=== PATIENT | male | born 1960 | race Caucasian/White ===

== ENCOUNTER 2019-12-28 08:34 | Emergency (ER) | payer SELFPAY ==
[~2019-12-28] VITALS: Ht 162.6 cm; Wt 64.4 kg
[2019-12-28 08:38] VITALS: BP_SYST 145
--- NOTE | 2019-12-28 08:45 | NUR ---
Patient to ER bed 02 to gown for evaluation. Side rails up.
--- NOTE | 2019-12-28 08:47 | NUR ---
Patient brought in by ambulance in the ED c/o abdominal pain, nausea and vomiting that started today after taking speed. Denied any chest pain or shortness of breath. Denied any fevers or chills. Patient is alert and oriented x2, respirations even and unlabored. VSS, pain level 4/10. Informed of the approximate wait time. Instructed to notify ED staff for any changes in condition or worsening of symptoms while waiting to be seen by an ED provider. Patient verbalized understanding.
--- NOTE | 2019-12-28 08:51 | NUR ---
ER Dr. Balderas at bedside examining patient.
[2019-12-28] MEDS ORDERED: ONDANSETRON HCL 4 MG/2 ML VIAL IVP ONE (09:00)
[2019-12-28] MEDS ORDERED: LORazepam 2 MG/ML VIAL IVP ONE (09:00)
[2019-12-28] MEDS ORDERED: NACL 0.9% 1,000 ML IV ONE ×2 (09:00)
--- NOTE | 2019-12-28 09:00 | NUR ---
# 18 gauge angiocath placed to RAC. Use of asceptic technique. Opsite placed over site. Blood return noted. Blood for lab drawn from site. Flushed with 10 cc of normal saline. No evidence of infiltration noted. Patient tolerated well.
--- NOTE | 2019-12-28 09:01 | NUR ---
Administered Ativan and Zofran IVP as ordered by Dr. Balderas. Patient tolerated the medications well. See eMAR for details.
[2019-12-28 09:14] LABS: BASOPHILS % (AUTO) 0.3 % (0.0-2.0); HEMATOCRIT 49.6 % (36-54); HEMOGLOBIN 16.4 g/dL (14.0-18.0); LYMPHOCYTES # (AUTO) 0.8 K/uL (1.0-5.5); LYMPHOCYTES % (AUTO) 6.3 % (20.5-51.5); MEAN CORPUSCULAR HEMOGLOBIN 27 pg (27-31); MEAN CORPUSCULAR HGB CONC 33 % (32-36); MEAN CORPUSCULAR VOLUME 81 fL (79.0-98.0); MONOCYTES # (AUTO) 0.3 K/uL (0.0-1.0); NEUTROPHILS # (AUTO) 11.9 K/uL (1.8-7.7); NEUTROPHILS % (AUTO) 91.4 % (40.0-70.0); PLATELET COUNT (AUTO) 327 K/uL (130-430); WHITE BLOOD COUNT (AUTO) 13.1 K/uL (4.8-10.8)
[2019-12-28 09:25] LABS: CALCIUM 9.6 mg/dL (8.4-11.0); CREATININE 1.73 mg/dL (0.55-1.30); POTASSIUM 4.1 mmol/L (3.5-5.1)
[2019-12-28 09:36] LABS: ALBUMIN 4.4 g/dL (3.4-4.8); TOTAL BILIRUBIN 0.9 mg/dL (0.0-1.0)
--- NOTE | 2019-12-28 09:44 | NUR ---
ECG done at bedside as ordered by Dr. Balderas. Patient tolerated the procedure well. ER Physician given copy of EKG for review.
[2019-12-28 10:50] LABS: CKMB RELATIVE INDEX 2.2 (0.0-2.9); CREATINE KINASE MB 7.2 ng/mL (0-3.6)
[2019-12-28 11:16] VITALS: BP_SYST 128
--- NOTE | 2019-12-28 11:17 | NUR ---
ER discussed with the patient the results and treatment provided. Patient given written and verbal discharge instructions and verbalized understanding. Opportunity for questions provided and answered. Patient in stable condition, last set of vital signs within normal limits, pain scale 0/10, speaking in full sentences and ambulated with a steady gait upon discharge. ID arm band removed. Rx of Zofran given. Patient educated on pain management and to follow up with PMD. Medication side effect fact sheet provided.
== END 2019-12-28 11:16 | disposition home or self-care (01) ==
LOC: SED 08:34
DX: R10.9 Unspecified abdominal pain (principal); F15.10 Other stimulant abuse, uncomplicated; R11.10 Vomiting, unspecified
CPT/HCPCS: 36415; 80053; 82550; 82553; 84484; 85025; 93005; 96361; 96374; 96375; 99284; J2060; J2405; J7030